=== PATIENT | female | born 1990 | race Caucasian/White ===

== ENCOUNTER 2017-03-19 10:31 | Emergency (ER) | payer OTHER ==
[2017-03-19 10:40] VITALS: TEMP 98.1
[2017-03-19] MEDS ORDERED: NS 1,000 ML IV ONE (10:54)
[2017-03-19] MEDS ORDERED: ONDANSETRON 4 MG/2 ML VIAL IVP ONE (10:54)
--- NOTE | 2017-03-19 11:05 | EDPHY ---
H & P Stated Complaint: R upper quad pain vomit since last night Time Seen by Provider: 03/19/17 10:55 HPI/ROS: Chief Complaint: Right-sided chest pain, nausea, vomiting HPI: 26-year-old woman presenting with right-sided chest pain and right upper quadrant abdominal pain since last night. Came on suddenly. Patient is has never had similar symptoms in the past. She did dry 15 hours from [employer] yesterday. She does take oral contraceptives. Does not smoke cigarettes but does smoke occasional marijuana. No fevers or chills. Has had nausea and vomiting. She was seen at urgent care was given a shot of Phenergan IM. No history of blood clots in the past. Has never had trouble with gallbladder or indigestion or pain after eating fatty foods. ROS: 10 point Review of Systems is negative except as noted in the HPI. PMH: Denies Social History: No smoking, occasional alcohol, occasional marijuana Family History: non-contributory Physical Exam: Gen: Awake, Alert, No Distress, uncomfortable appearing HEENT: Nose: no rhinorrhea Eyes: PERRLA, EOMI Mouth: Moist mucosa Neck: Supple, no JVD Chest: nontender, lungs clear to auscultation Heart: S1, S2 normal, no murmur Abd: Soft, non-tender, no guarding Back: no CVA tenderness, no midline tenderness Ext: no edema, non-tender Skin: no rash Neuro: CN II-XII intact, Sensation grossly intact, Strength 5/5 in bilateral upper and lower extremities - Personal History LMP (Females 10-55): 8-14 Days Ago Current Tetanus/Diphtheria Vaccine: Unsure Current Tetanus Diphtheria and Acellular Pertussis (TDAP): Unsure - Medical/Surgical History Hx Asthma: No Hx Chronic Respiratory Disease: No Hx Diabetes: No Hx Cardiac Disease: No Hx Renal Disease: No Hx Cirrhosis: No Hx Alcoholism: No Hx HIV/AIDS: No Hx Splenectomy or Spleen Trauma: No Other PMH: depression - Social History Smoking Status: Current some day smoker Constitutional: Initial Vital Signs Temperature (C) 36.7 C 03/19/17 10:38 Heart Rate 102 H 03/19/17 10:38 Respiratory Rate 18 03/19/17 10:38 Blood Pressure 104/62 03/19/17 10:38 O2 Sat (%) 100 03/19/17 10:38 O2 Delivery Mode Room Air Allergies/Adverse Reactions: No Known Allergies Allergy (Unverified 06/26/13 20:13) Home Medications: Medication Instructions Recorded Ortho-Cyclen 03/19/17 Medical Decision Making - Diagnostics Imaging Results: Imaging Impressions Abdomen Ultrasound 03/19/17 11:37 Impression: Mildly thickened gallbladder wall could represent acalculous cholecystitis. Otherwise negative. If clinically indicated a nuclear medicine HIDA scan with ejection fraction calculation might be useful. Results discussed with Dr. Monge. Chest X-Ray 03/19/17 11:37 Impression: No pneumonia. ED Course/Re-evaluation: Patient here with right-sided abdominal pain. Repeat examination shows some mild right upper quadrant pain but she does not have a sonographic Johnson sign. She has not have a Johnson sign eggs on examination now. She has some mild lateral gallbladder wall thickening at 4 mm with a bilirubin of 1.5. I have discussed with Dr. Britton, general surgery. He given the fact that the patient has negative Johnson sign and a normal white count he does not recommending further evaluation at this time. He is agree with the plan for watchful waiting. The patient has had resolution of her pain with IV Toradol. She is no longer vomiting. D-dimer is negative and she has no other symptoms suggestive of PE at this time. Chest x-ray is unremarkable. Patient has a primary care physician. She will follow up. She has been instructed that she should return to the emergency department for worsening pain, fevers, chills, uncontrolled nausea or vomiting, or any other concerns. - Data Points Laboratory Results: Laboratory Results 03/19/17 11:03 03/19/17 11:03 03/19/17 03/19/17 03/19/17 11:03 11:03 11:03 WBC RBC Hgb Hct MCV MCH MCHC RDW Plt Count MPV Neut % (Auto) Lymph % (Auto) Sandoval % (Auto) Eos % (Auto) Baso % (Auto) Nucleat RBC Rel Count Absolute Neuts (auto) Absolute Lymphs (auto) Absolute Monos (auto) Absolute Eos (auto) Absolute Basos (auto) Absolute Nucleated RBC Immature Gran % Immature Gran # D-Dimer < 0.27 ug/mLFEU ug/mLFEU (0.00-0.50) Sodium 139 mEq/L mEq/L (134-144) Potassium 3.6 mEq/L mEq/L (3.5-5.2) Chloride 102 mEq/L mEq/L (97-110) Carbon Dioxide 24 mEq/l mEq/l (22-31) Anion Gap 13 mEq/L mEq/L (8-16) BUN 11 mg/dL mg/dL (7-23) Creatinine 0.7 mg/dL mg/dL (0.6-1.0) Estimated GFR > 60 Glucose 108 mg/dL H mg/dL (70-100) Calcium 9.5 mg/dL mg/dL (8.5-10.4) Total Bilirubin 1.5 mg/dL H mg/dL (0.1-1.4) Conjugated Bilirubin 0.1 mg/dL mg/dL (0.0-0.5) Unconjugated Bilirubin 1.4 mg/dL H mg/dL (0.0-1.1) AST 27 IU/L IU/L (14-46) ALT 30 IU/L IU/L (9-52) Alkaline Phosphatase 55 IU/L IU/L (38-126) Total Protein 7.2 g/dL g/dL (6.3-8.2) Albumin 4.4 g/dL g/dL (3.5-5.0) Lipase 88 IU/L IU/L (23-300) Beta HCG, Qual NEGATIVE 03/19/17 11:03 WBC 5.77 10^3/uL 10^3/uL (3.80-9.50) RBC 4.59 10^6/uL 10^6/uL (4.18-5.33) Hgb 14.8 g/dL g/dL (12.6-16.3) Hct 41.8 % % (38.0-47.0) MCV 91.1 fL fL (81.5-99.8) MCH 32.2 pg pg (27.9-34.1) MCHC 35.4 g/dL g/dL (32.4-36.7) RDW 11.7 % % (11.5-15.2) Plt Count 221 10^3/uL 10^3/uL (150-400) MPV 10.6 fL fL (8.7-11.7) Neut % (Auto) 84.7 % H % (39.3-74.2) Lymph % (Auto) 5.7 % L % (15.0-45.0) Sandoval % (Auto) 8.7 % % (4.5-13.0) Eos % (Auto) 0.3 % L % (0.6-7.6) Baso % (Auto) 0.3 % % (0.3-1.7) Nucleat RBC Rel Count 0.0 % % (0.0-0.2) Absolute Neuts (auto) 4.88 10^3/uL 10^3/uL (1.70-6.50) Absolute Lymphs (auto) 0.33 10^3/uL L 10^3/uL (1.00-3.00) Absolute Monos (auto) 0.50 10^3/uL 10^3/uL (0.30-0.80) Absolute Eos (auto) 0.02 10^3/uL L 10^3/uL (0.03-0.40) Absolute Basos (auto) 0.02 10^3/uL 10^3/uL (0.02-0.10) Absolute Nucleated RBC 0.00 10^3/uL 10^3/uL (0-0.01) Immature Gran % 0.3 % % (0.0-1.1) Immature Gran # 0.02 10^3/uL 10^3/uL (0.00-0.10) D-Dimer Sodium Potassium Chloride Carbon Dioxide Anion Gap BUN Creatinine Estimated GFR Glucose Calcium Total Bilirubin Conjugated Bilirubin Unconjugated Bilirubin AST ALT Alkaline Phosphatase Total Protein Albumin Lipase Beta HCG, Qual Medications Given: Discontinued Medications Sodium Chloride (Ns) 1,000 mls @ 0 mls/hr IV ONCE ONE PRN Reason: Wide Open Stop: 03/19/17 10:55 Last Admin: 03/19/17 11:06 Dose: 1,000 mls Ketorolac Tromethamine (Toradol) 15 mg IVP EDNOW ONE Stop: 03/19/17 11:52 Last Admin: 03/19/17 11:56 Dose: 15 mg Ondansetron HCl (Zofran) 4 mg IVP EDNOW ONE Stop: 03/19/17 10:55 Last Admin: 03/19/17 11:06 Dose: 4 mg Departure - Departure Disposition: Home, Routine, Self-Care Clinical Impression: Abdominal pain Condition: Good Instructions: Acute Abdominal Pain (ED) Additional Instructions: Return to the emergency department for worsening pain, fevers, chills, uncontrolled nausea or vomiting, or any other concerns. Follow up with primary care physician in 2-3 days for further evaluation. Alternate acetaminophen (1000 mg) with ibuprofen (400 mg) every 4 hours as needed for fevers, chills, aches or pains. Referrals: Emma Grayson MD [Primary Care Provider] - As per Instructions
--- NOTE | 2017-03-19 11:17 | CPEKG ---
Heart Rate: 94 RR Interval: 638 P-R Interval: 192 QRSD Interval: 82 QT Interval: 352 QTC Interval: 441 P Littlefield: 70 QRS Littlefield: 53 T Wave Littlefield: -47 EKG Severity - ABNORMAL ECG - EKG Impression: SINUS RHYTHM EKG Impression: NONSPECIFIC T ABNORMALITIES, INFERIOR LEADS Electronically Signed By: Tera Russ 27-Mar-2017 12:37:05
[2017-03-19 11:18] LABS: PLATELET COUNT 221 10^3/uL (150-400)
[2017-03-19] MEDS ORDERED: KETOROLAC 15 MG/1 ML SDV IVP ONE (11:51)
[2017-03-19 14:21] VITALS: BP 98/48; PULSE 96; RESP 18; O2SAT 98
== END 2017-03-19 14:20 | disposition home or self-care (01) ==
DX: R10.9 Unspecified abdominal pain (principal); F17.200 Nicotine dependence, unspecified, uncomplicated; R11.2 Nausea with vomiting, unspecified
CPT/HCPCS: 96374; J1885; J2405